=== PATIENT | female | born 1965 | race Caucasian/White ===

== ENCOUNTER 2017-08-31 09:46 | Emergency (ER) | payer OTHER ==
[2017-08-31 10:29] VITALS: BP 175/96
--- NOTE | 2017-08-31 11:01 | EDM.PDOC ---
ED HPI GENERAL MEDICAL PROBLEM - General Chief Complaint: Upper Extremity Injury/Pain Stated Complaint: LT ARM PAIN Time Seen by Provider: 08/31/17 10:15 Source of Information: Reports: Patient, Provider History Limitations: Reports: No Limitations - History of Present Illness INITIAL COMMENTS - FREE TEXT/NARRATIVE: 52-year-old female has had pain and numbness in her left arm for the past 2 weeks. It is along the biceps into the antecubital area, painful when she hangs her arm down or when she's flexing the arm. She's been waking up at night with some deep pain as well. It feels like the arm is starting to get weaker, she dropped a glass of pop yesterday which is unusual for her. She's had no swelling. She went into the clinic to be evaluated today, mentioned she had a couple episodes of chest pain as well over the past few weeks so she was sent to the emergency room. No shortness of breath, nausea or vomiting, no current chest discomfort. Onset: Unknown/Unsure (Symptoms have been waxing and waning for weeks) Severity: Mild Worsens with: Reports: Movement Left Upper Arm Pain Score (Numeric/FACES): 4 - Related Data Allergies Allergy/AdvReac Type Severity Reaction Status Date / Time Penicillins Allergy Intermediate swelling Verified 08/31/17 10:18 hands ultrasound gel Allergy Intermediate Rash Uncoded 08/31/17 10:18 Home Meds: Home Meds Albuterol [Ventolin HFA] 1 puff INH ASDIRECTED PRN 08/13/13 [History] Amitriptyline HCl 10 mg PO ASDIRECTED PRN 08/13/13 [History] Citalopram [Citalopram HBr] 20 mg PO DAILY 08/13/13 [History] Fluticasone/Salmeterol [Advair 250-50] 1 puff INH BEDTIME 08/13/13 [History] Omeprazole 20 mg PO ASDIRECTED PRN 08/31/17 [History] Past Medical History Cardiovascular History: Reports: Hypertension Respiratory History: Reports: Asthma Gastrointestinal History: Reports: GERD 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: Reports: Fibroids, Musculoskeletal History: Reports: Arthritis Neurological History: Reports: Migraines, Seizure Psychiatric History: Reports: Depression - Past Surgical History HEENT Surgical History: Reports: Adenoidectomy, Tonsillectomy Female Surgical History: Reports: Hysterectomy Social & Family History - Tobacco Use Smoking Status *Q: Never Smoker Years of Tobacco use: 2 Used Tobacco, but Quit: Yes Month Tobacco Last Used: 06/1990 Second Hand Smoke Exposure: No - Caffeine Use Caffeine Use: Reports: Soda, Tea - Alcohol Use Days Per Week of Alcohol Use: 0 - Recreational Drug Use Recreational Drug Use: No Review of Systems - Review of Systems Review Of Systems: See Below Respiratory: Denies: Shortness of Breath, Cough Cardiovascular: Reports: Chest Pain (A few episodes of chest pain over the past few weeks, brief) Genitourinary: Reports: No Symptoms Musculoskeletal: Reports: Arm Pain (Pain is localized to the left anterior arm) . Denies: Neck Pain, Shoulder Pain Neurological: Reports: Paresthesia (Intermittent paresthesias of the left arm that seemed to extend into the third and fourth finger left hand) Psychiatric: Reports: No Symptoms ED EXAM, GENERAL - Physical Exam Exam: See Below Exam Limited By: No Limitations General Appearance: Alert, No Apparent Distress Eye Exam: Bilateral Eye: Normal Inspection Neck: Normal Inspection, Supple, Non-Tender Respiratory/Chest: No Respiratory Distress, Lungs Clear Cardiovascular: Regular Rate, Rhythm Extremities: Other (Exam of the left arm reveals tenderness to palpation to the biceps, and particularly the distal biceps tendon. There is increased pain with flexion against resistance, some discomfort with extension but much less pain. Grasp strength is normal.) EKG INTERPRETATION Rhythm: NSR Course - Vital Signs Last Recorded V/S: Last Vital Signs Temp 95.2 F L 08/31/17 10:16 Pulse 63 08/31/17 10:27 Resp 16 08/31/17 10:27 BP 175/96 H 08/31/17 10:27 Pulse Ox 96 08/31/17 10:27 - Re-Assessments/Exams Free Text/Narrative Re-Assessment/Exam: 08/31/17 10:58 An EKG was done for reassurance which showed no ST segment changes. She was in a normal sinus rhythm. This is a musculoskeletal or neurologic origin, noncardiac. After a long discussion of treatment options, we elected to put her on 60 mg of prednisone for 6 consecutive days which she will take with her first meal of the day. I'm going to limit her to 5 pounds or less lifting for one week and have her rechecked in a week's time. She can return sooner at any time if worsening or concerns. Departure - Departure Time of Disposition: 11:19 Disposition: Home, Self-Care 01 Condition: Good Clinical Impression: Bicipital tendinitis Qualifiers: Laterality: left Qualified Code(s): M75.22 - Bicipital tendinitis, left shoulder - Discharge Information Instructions: Tendinitis, [id number] Referrals: Hazel Devine MD [Primary Care Provider] - Forms: ED Department Discharge Care Plan Goals: Rest your left arm for the next week while taking 60 mg of prednisone daily as discussed. Recheck in 1 week's time if not improving satisfactorily. Return sooner if worsening despite treatment.
== END 2017-08-31 11:19 | disposition home or self-care (01) ==
LOC: JP.ED 09:46
DX: M75.22 Bicipital tendinitis, left shoulder (principal); I10 Essential (primary) hypertension; J45.909 Unspecified asthma, uncomplicated; F32.9 Major depressive disorder, single episode, unspecified; Z79.899 Other long term (current) drug therapy; Z88.0 Allergy status to penicillin; Z91.048 Other nonmedicinal substance allergy status
CPT/HCPCS: 99284-25

== ENCOUNTER 2018-04-18 07:52 | Day surgery (SDC) | payer OTHER ==
[~2018-04-18 07:52] MED LIST: Midazolam 1 MG/ML 2 ML SDV ONE; Propofol 200 MG/20 ML SDV ONE; fentaNYL 100 MCG/2 ML SDV ONE
[2018-04-18] MEDS ORDERED: Lactated Ringers 1,000 ML IV SCH (08:00)
[2018-04-18 10:30] VITALS: BP 138/94
--- NOTE | 2018-04-19 07:34 | OR ---
DATE OF PROCEDURE: 04/18/2018 PREOPERATIVE DIAGNOSIS: Colon cancer screening. POSTOPERATIVE DIAGNOSIS: Kraus-diverticulosis. PROCEDURE: Colonoscopy to the cecum. ANESTHESIA: IV anesthesia with monitored anesthesia care. INDICATION: This 52-year-old white female is referred for a colonoscopy for colon cancer screening. She has never had a colonoscopic exam. I counseled her for the procedure including risks and alternatives, and she gave her informed consent to proceed. DESCRIPTION OF PROCEDURE: The patient was placed in the left lateral decubitus position. IV anesthesia was administered by the Anesthesia Service. Time-out was held. A rectal exam was performed, which was unremarkable. The flexible video Olympus colonoscope was introduced through her anus, up her rectum, and out her colon, all the way to the cecum. En route, we saw multiple left-sided diverticula. There were also a few scattered transverse and right colon diverticula. There was no bleeding or inflammation associated with any of them. Once the cecum was reached, the scope was slowly withdrawn, examining the mucosa throughout. No additional mucosal abnormalities were noted. There were no neoplastic lesions seen. The scope was retroflexed in the rectum with the distal rectum appearing unremarkable. The scope was straightened and removed. She tolerated the procedure well. Morales Garcia MD /[id number]
== END 2018-04-18 10:41 | disposition home or self-care (01) ==
LOC: JP.SDS 07:52
PROVIDERS: ATTEND Surgery
DX: Z12.11 Encounter for screening for malignant neoplasm of colon (principal); K57.30 Diverticulosis of large intestine without perforation or abscess without bleeding; K21.9 Gastro-esophageal reflux disease without esophagitis; J45.909 Unspecified asthma, uncomplicated; G47.33 Obstructive sleep apnea (adult) (pediatric); Z99.89 Dependence on other enabling machines and devices; E78.00 Pure hypercholesterolemia, unspecified; Z80.0 Family history of malignant neoplasm of digestive organs; Z88.1 Allergy status to other antibiotic agents; Z88.8 Allergy status to other drugs, medicaments and biological substances; Z91.048 Other nonmedicinal substance allergy status
CPT/HCPCS: 45378; J2250; J2704; J3010; J7120

== ENCOUNTER 2023-02-26 07:07 | Day surgery (SDC) | payer OTHER ==
[2023-02-26] MEDS ORDERED: Midazolam 1 MG/ML 2 ML SDV ONE (08:14)
[2023-02-26] MEDS ORDERED: Propofol 200 MG/20 ML SDV ONE (08:14)
[2023-02-26] MEDS ORDERED: fentaNYL 100 MCG/2 ML SDV ONE (08:14)
[2023-02-26] MEDS ORDERED: Lactated Ringers 1,000 ML IV SCH (08:30)
[2023-02-26 10:56] VITALS: BP 123/67; PULSE 84
== END 2023-02-26 11:09 | disposition home or self-care (01) ==
LOC: JP.SDS 07:07
PROVIDERS: ATTEND Student in an Organized Health Care Education/Training Program
DX: K29.50 Unspecified chronic gastritis without bleeding (principal); K21.00 Gastro-esophageal reflux disease with esophagitis, without bleeding; K44.9 Diaphragmatic hernia without obstruction or gangrene; I10 Essential (primary) hypertension; E78.5 Hyperlipidemia, unspecified; E66.9 Obesity, unspecified; Z88.0 Allergy status to penicillin; Z88.1 Allergy status to other antibiotic agents; Z88.8 Allergy status to other drugs, medicaments and biological substances
CPT/HCPCS: 88305; J2250; J2704; J3010; J7120

== ENCOUNTER 2023-09-08 11:00 | Emergency (ER) | payer OTHER, MEDICAID ==
[2023-09-08 11:31] LABS: BASOPHILS ABSOLUTE AUTO 0.04 K/uL (0.00-0.10); BASOPHILS PERCENT AUTO 0.3 % (0.1-1.3); EOSINOPHILS ABSOLUTE AUTO 0.13 K/uL (0.00-0.40); EOSINOPHILS PERCENT AUTO 1.1 % (0.0-5.4); HEMATOCRIT 33.8 % (34.3-46.0); IMMATURE GRAN ABSOLUTE AUTO 0.09 K/uL (0.00-0.23); IMMATURE GRAN PERCENT AUTO 0.8 % (0.0-0.7); LYMPHOCYTES ABSOLUTE AUTO 0.78 K/uL (0.8-3.3); LYMPHOCYTES PERCENT AUTO 6.8 % (11.4-47.7); MEAN CORPUSCULAR HEMOGLOBIN 30.5 pg (31.6-35.5); MEAN CORPUSCULAR HGB CONC 35.5 g/dL (31.6-35.5); MONOCYTES ABSOLUTE AUTO 0.94 K/uL (0.20-0.90); MONOCYTES PERCENT AUTO 8.2 % (3.3-12.6); NEUTROPHILS ABSOLUTE AUTO 9.49 K/uL (1.0-7.6); NEUTROPHILS PERCENT AUTO 82.8 % (40.0-78.1); PLATELET COUNT,PLT 371 K/uL (130-375); RED BLOOD CELL COUNT 3.93 M/uL (3.77-5.24); WHITE BLOOD CELL COUNT,WBC 11.5 K/uL (3.2-11.0)
[2023-09-08 11:47] LABS: ANION GAP 17.2 mmol/L (5.0-14.0); CALCIUM 9.1 mg/dL (8.5-10.1); EST CRCL DRUG DOSING (CG) 43.51 mL/min; MAGNESIUM 1.2 mg/dL (1.8-2.4); POTASSIUM,K 3.2 mmol/L (3.6-5.2)
[2023-09-08] MEDS ORDERED: Magnesium Sulfate/Water 2 GM in Premix Bag 1 BAG IV ONE (11:52)
[2023-09-08] MEDS ORDERED: Lactated Ringers 1,000 ML IV ONE (11:56)
[2023-09-08 12:34] LABS: BASE EXCESS VENOUS 4.1 mm/L; BICARBONATE,VENOUS 24.6 mmol/L; METHEMOGLOBIN 1.5 %; O2 SATURATION VENOUS 64.1; OXYHEMOGLOBIN 61.9 %; PCO2 VENOUS 24.3 mm/Hg; PH,VENOUS 7.609 (7.350-7.450); PO2 VENOUS 30.4 mm/Hg; TOTAL HEMOGLOBIN 12.1 g/dL (12.0-16.0)
[2023-09-08] MEDS ORDERED: LORazepam 2 MG/ML SDV IVPUSH ONE (12:45)
[2023-09-08] MEDS ORDERED: Benzonatate 100 MG Cap PO ONE (13:14)
[2023-09-08 13:17] VITALS: BP 129/66; PULSE 88
[2023-09-08] MEDS ORDERED: Albuterol/Ipratropium 3.0-0.5 MG/3 ML Neb Soln NEB ONE (14:02)
[2023-09-08 14:31] LABS: CALCIUM 8.9 mg/dL (8.5-10.1); CREATININE 0.9 mg/dL (0.6-1.0); EST CRCL DRUG DOSING (CG) 48.34 mL/min; MAGNESIUM 2.3 mg/dL (1.8-2.4); POTASSIUM,K 3.1 mmol/L (3.6-5.2)
[2023-09-08 14:32] LABS: ANION GAP 12.1 mmol/L (5.0-14.0)
== END 2023-09-08 15:20 | disposition home or self-care (01) ==
LOC: JP.ED 11:00
DX: E87.6 Hypokalemia (principal); E83.42 Hypomagnesemia; F41.9 Anxiety disorder, unspecified; I10 Essential (primary) hypertension; K21.9 Gastro-esophageal reflux disease without esophagitis; J45.909 Unspecified asthma, uncomplicated; E66.9 Obesity, unspecified; Z79.899 Other long term (current) drug therapy; Z88.0 Allergy status to penicillin; Z88.1 Allergy status to other antibiotic agents; Z88.8 Allergy status to other drugs, medicaments and biological substances; Z91.048 Other nonmedicinal substance allergy status
CPT/HCPCS: 36415; 71046; 71046-26; 80048; 82803; 83605; 83735; 84145; 85025; 93005; 93010; 96365; 96366; 96375; 99283; 99285-25; A9270-GY; J2060; J3475; J7120; J7620

== ENCOUNTER 2023-09-13 11:47 | Inpatient (IN) | payer OTHER, MEDICAID ==
[2023-09-13] MEDS ORDERED: Sodium Chloride 0.9% 10 ML Syringe FLUSH PRN (12:52)
[2023-09-13] MEDS ORDERED: Sodium Chloride 0.9% 500 ML IV ONE ×2 (12:52→13:51)
[2023-09-13] MEDS ORDERED: Acetaminophen 500 MG Tab PO ONE (12:52)
[2023-09-13] MEDS ORDERED: Ondansetron 4 MG/2 ML SDV IVPUSH ONE (12:52)
[2023-09-13 13:04] LABS: BASE EXCESS VENOUS -1.6 mm/L; CARBOXYHEMOGLOBIN 1.7 % (0.0-1.6); METHEMOGLOBIN 1.3 %; O2 SATURATION VENOUS 46.2; OXYHEMOGLOBIN 44.8 %; PCO2 VENOUS 40.5 mm/Hg; PH,VENOUS 7.372 (7.350-7.450); TOTAL HEMOGLOBIN 13.8 g/dL (12.0-16.0)
[2023-09-13 13:08] LABS: PO2 VENOUS 28.3 mm/Hg
[2023-09-13 13:19] LABS: HEMOGLOBIN 12.6 g/dL (11.2-15.5); MEAN CORPUSCULAR HEMOGLOBIN 30.1 pg (31.6-35.5); MEAN CORPUSCULAR VOLUME 86.1 fL (81.4-99.0); PLATELET COUNT,PLT 265 K/uL (130-375); RED BLOOD CELL COUNT 4.18 M/uL (3.77-5.24); WHITE BLOOD CELL COUNT,WBC 8.1 K/uL (3.2-11.0)
[2023-09-13 13:22] LABS: CHLORIDE,CL 96 mmol/L (100-108)
[2023-09-13 13:37] LABS: BAND ABSOLUTE MAN 0.41 K/uL; BAND PERCENT MAN 5 % (5-11); LYMPHOCYTES ABSOLUTE MAN 1.86 K/uL (0.8-3.3); LYMPHOCYTES PERCENT MAN 23 % (24-44); MONOCYTES ABSOLUTE MAN 0.16 K/uL (0.20-0.90); MONOCYTES PERCENT MAN 2 % (2-6); NEUTROPHILS ABSOLUTE MAN 5.67 K/uL (1.0-7.6); SEG NEUTROPHILS PERCENT MAN 70 % (36-66)
[2023-09-13 13:42] LABS: A/G RATIO 0.8 (1.2-2.2); ALANINE AMINOTRANSFERASE,ALT 41 U/L (12-78); ALBUMIN 3.2 g/dL (3.4-5.0); ALKALINE PHOSPHATASE 70 U/L (46-116); ANION GAP 14.1 mmol/L (5.0-14.0); ASPARTATE AMNIOTRANSFERASE,AST 82 U/L (15-37); BILIRUBIN TOTAL 0.3 mg/dL (0.2-1.0); BLOOD UREA NITROGEN,BUN 35 mg/dL (7-18); C-REACTIVE PROTEIN 6.86 mg/dL (0.0-0.3); CALCIUM 8.2 mg/dL (8.5-10.1); CARBON DIOXIDE,CO2 27 mmol/L (21-32); CREATININE 1.5 mg/dL (0.6-1.0); ESTIMATED GFR 40 mL/min (>60); GLUCOSE RANDOM 118 mg/dL (74-106); POTASSIUM,K 3.1 mmol/L (3.6-5.2); SODIUM,NA 134 mmol/L (140-148)
[2023-09-13] MEDS ORDERED: Potassium Chloride 20 MEQ Tab.ER PO ONE (13:50)
[2023-09-13] MEDS ORDERED: Sodium Chloride 0.9% 1,000 ML IV ONE (14:13)
[2023-09-13] MEDS ORDERED: Sodium Chloride 0.9% 10 ML Syringe FLUSH ONE (14:25)
[2023-09-13] MEDS ORDERED: Iopamidol 755 Mg/ML 100 ML Bottle IV SCH (14:30)
[2023-09-13] MEDS ORDERED: Sodium Chloride 0.9% 100 ML IV SCH (14:30)
[2023-09-13 14:35] LABS: LYME AB IgM Negative (Negative)
[2023-09-13 14:41] LABS: LYME AB IgG Negative (Negative)
[2023-09-13] MEDS ORDERED: Levofloxacin 250 MG Tab PO ONE (15:33)
[2023-09-13] MEDS ORDERED: Prochlorperazine 10 MG/2 ML SDV IVPUSH ONE (18:21)
[2023-09-13] MEDS ORDERED: Naloxone 0.4 MG/ML SDV IVPUSH PRN (19:57)
[2023-09-13] MEDS ORDERED: Potassium Chloride 20 MEQ in Premix Bag 1 BAG IV ONE (19:57)
[2023-09-13] MEDS ORDERED: Acetaminophen 325 MG Tab PO PRN (19:57)
[2023-09-13] MEDS ORDERED: Ondansetron 4 MG/2 ML SDV IV PRN (19:57)
[2023-09-13] MEDS ORDERED: Morphine 2 MG/ML SYRINGE IVPUSH PRN (19:57)
[2023-09-13] MEDS ORDERED: Bisacodyl 5 MG Tab PO PRN (19:57)
[2023-09-13] MEDS ORDERED: Ketorolac 30 MG/ML SDV IVPUSH PRN (19:57)
[2023-09-13] MEDS ORDERED: Sodium Chloride 0.9% 1,000 ML IV SCH (19:57)
[2023-09-13] MEDS ORDERED: Albuterol 0.083% 2.5 MG/3 ML Neb Soln NEB PRN (19:57)
[2023-09-13] MEDS ORDERED: methylPREDNISolone Sodium Succinate 125 MG/2 ML SDV IVPUSH ONE (19:57)
[2023-09-13] MEDS ORDERED: oxyCODONE 5 MG Tab PO PRN (19:57)
[2023-09-13] MEDS ORDERED: Docusate Sodium 100 MG Cap PO PRN (19:57)
[2023-09-13] MEDS ORDERED: LORazepam 2 MG/ML SDV IV PRN (19:57)
[2023-09-13] MEDS ORDERED: Ondansetron 4 MG Tab.DIS PO PRN (19:57)
[2023-09-13] MEDS ORDERED: Azithromycin 500 MG in Sodium Chloride 0.9% 250 ML IV SCH (20:00)
[2023-09-13] MEDS ORDERED: Enoxaparin 30 MG/0.3 ML Syringe SUBCUT SCH (20:35)
[2023-09-13] MEDS ORDERED: Formoterol/Mometasone 100-5 MCG 8.8 GM Inhaler IH SCH (21:00)
[2023-09-13] MEDS ORDERED: Pantoprazole 40 MG Vial IV SCH (21:00)
[2023-09-13] MEDS ORDERED: cefTRIAXone 2 GM in Sodium Chloride 0.9% 50 ML IV SCH (21:00)
[2023-09-13] MEDS: Melatonin 3 MG Tab PO SCH (21:35)
[2023-09-13] MEDS: Albuterol/Ipratropium 3.0-0.5 MG/3 ML Neb Soln NEB SCH (21:36)
[2023-09-13] MEDS: DULoxetine 30 MG Cap PO SCH (21:50)
[2023-09-14] MEDS ORDERED: methylPREDNISolone Sodium Succinate 40 MG/1 ML SDV IVPUSH SCH ×2 (01:00→09:00)
[2023-09-14 06:11] LABS: HEMOGLOBIN 11.6 g/dL (11.2-15.5); MEAN CORPUSCULAR HEMOGLOBIN 30.1 pg (31.6-35.5); MEAN CORPUSCULAR HGB CONC 34.1 g/dL (31.6-35.5); MEAN CORPUSCULAR VOLUME 88.1 fL (81.4-99.0); PLATELET COUNT,PLT 265 K/uL (130-375); RED BLOOD CELL COUNT 3.86 M/uL (3.77-5.24); WHITE BLOOD CELL COUNT,WBC 3.5 K/uL (3.2-11.0)
[2023-09-14 06:23] LABS: C-REACTIVE PROTEIN 4.75 mg/dL (0.0-0.3); CALCIUM 7.7 mg/dL (8.5-10.1); CREATININE 1.1 mg/dL (0.6-1.0); EST CRCL DRUG DOSING (CG) 41.55 mL/min; POTASSIUM,K 3.1 mmol/L (3.6-5.2)
[2023-09-14 06:25] LABS: ANION GAP 19.1 mmol/L (5.0-14.0)
[2023-09-14 06:53] LABS: LYMPHOCYTES ABSOLUTE MAN 0.84 K/uL (0.8-3.3); LYMPHOCYTES PERCENT MAN 24 % (24-44); MONOCYTES ABSOLUTE MAN 0.14 K/uL (0.20-0.90); MONOCYTES PERCENT MAN 4 % (2-6); NEUTROPHILS ABSOLUTE MAN 2.52 K/uL (1.0-7.6); SEG NEUTROPHILS PERCENT MAN 72 % (36-66)
[2023-09-14] MEDS: Albuterol/Ipratropium 3.0-0.5 MG/3 ML Neb Soln NEB SCH ×4 (07:28→20:22)
[2023-09-14] MEDS: Formoterol/Mometasone 100-5 MCG 8.8 GM Inhaler IH SCH ×2 (07:29→20:24)
[2023-09-14] MEDS ORDERED: Potassium Chloride 20 MEQ Tab.ER PO ONE ×3 (09:00→21:30)
[2023-09-14] MEDS ORDERED: predniSONE 20 MG Tab PO ONE (09:30)
[2023-09-14] MEDS: Chlorthalidone 25 MG Tab PO SCH (09:37)
[2023-09-14] MEDS: DULoxetine 30 MG Cap PO SCH ×2 (09:38→20:22)
[2023-09-14] MEDS: Lisinopril 5 MG Tab PO SCH (09:38)
[2023-09-14] MEDS: Levofloxacin 250 MG Tab PO SCH (15:29)
[2023-09-14] MEDS ORDERED: Azithromycin 250 MG Tab PO SCH (20:00)
[2023-09-14] MEDS: Melatonin 3 MG Tab PO SCH (20:22)
[2023-09-14] MEDS: Pantoprazole 40 MG Tab.CR PO SCH (20:22)
[2023-09-14] MEDS: Enoxaparin 40 MG/0.4 ML Syringe SUBCUT SCH (20:22)
[2023-09-14] MEDS ORDERED: Cyclobenzaprine 10 MG Tab PO PRN (20:48)
[2023-09-14] MEDS ORDERED: cefTRIAXone 2 GM in Sodium Chloride 0.9% 50 ML IV SCH (21:00)
[2023-09-14] MEDS ORDERED: Potassium Chloride 10 MEQ in Premix Bag 4 BAG IV ONE (21:14)
[2023-09-14] MEDS: Potassium Chloride 100 ML IV SCH ×3 (21:44→23:59)
[2023-09-15] MEDS: Potassium Chloride 100 ML IV SCH (00:59)
[2023-09-15 05:16] LABS: HEMATOCRIT 30.9 % (34.3-46.0); HEMOGLOBIN 10.9 g/dL (11.2-15.5); MEAN CORPUSCULAR HEMOGLOBIN 30.5 pg (31.6-35.5); MEAN CORPUSCULAR HGB CONC 35.3 g/dL (31.6-35.5); MEAN CORPUSCULAR VOLUME 86.6 fL (81.4-99.0); RED BLOOD CELL COUNT 3.57 M/uL (3.77-5.24); WHITE BLOOD CELL COUNT,WBC 7.8 K/uL (3.2-11.0)
[2023-09-15 05:47] LABS: CALCIUM 8.6 mg/dL (8.5-10.1); CREATININE 0.8 mg/dL (0.6-1.0); EST CRCL DRUG DOSING (CG) 57.14 mL/min; POTASSIUM,K 3.8 mmol/L (3.6-5.2)
[2023-09-15 05:54] LABS: ANION GAP 12.8 mmol/L (5.0-14.0)
[2023-09-15] MEDS: Albuterol/Ipratropium 3.0-0.5 MG/3 ML Neb Soln NEB SCH (07:43)
[2023-09-15] MEDS: Formoterol/Mometasone 100-5 MCG 8.8 GM Inhaler IH SCH ×2 (07:43→20:54)
[2023-09-15] MEDS ORDERED: predniSONE 20 MG Tab PO SCH (08:00)
[2023-09-15] MEDS: Benzonatate 100 MG Cap PO PRN ×2 (08:12→19:15)
[2023-09-15] MEDS: Lisinopril 5 MG Tab PO SCH (09:34)
[2023-09-15] MEDS: Chlorthalidone 25 MG Tab PO SCH (09:34)
[2023-09-15] MEDS: DULoxetine 30 MG Cap PO SCH ×2 (09:34→20:54)
[2023-09-15] MEDS: Levofloxacin 250 MG Tab PO SCH (15:07)
[2023-09-15] MEDS: Pantoprazole 40 MG Tab.CR PO SCH (20:54)
[2023-09-15] MEDS: Melatonin 3 MG Tab PO SCH (20:54)
[2023-09-15] MEDS: Enoxaparin 40 MG/0.4 ML Syringe SUBCUT SCH (20:54)
[2023-09-16] MEDS: Benzonatate 100 MG Cap PO PRN ×3 (04:24→21:13)
[2023-09-16 05:40] LABS: HEMATOCRIT 32.6 % (34.3-46.0); HEMOGLOBIN 11.4 g/dL (11.2-15.5); MEAN CORPUSCULAR HEMOGLOBIN 30.2 pg (31.6-35.5); MEAN CORPUSCULAR VOLUME 86.5 fL (81.4-99.0); RED BLOOD CELL COUNT 3.77 M/uL (3.77-5.24); WHITE BLOOD CELL COUNT,WBC 8.5 K/uL (3.2-11.0)
[2023-09-16 05:57] LABS: CALCIUM 8.9 mg/dL (8.5-10.1); CREATININE 0.8 mg/dL (0.6-1.0); EST CRCL DRUG DOSING (CG) 57.14 mL/min
[2023-09-16 06:02] LABS: ANION GAP 12.8 mmol/L (5.0-14.0); POTASSIUM,K 2.8 mmol/L (3.6-5.2)
[2023-09-16] MEDS ORDERED: Potassium Chloride 20 MEQ Tab.ER PO ONE ×3 (06:25→18:08)
[2023-09-16] MEDS: Potassium Chloride 10 MEQ in Premix Bag 1 BAG IV SCH ×2 (06:46→08:11)
[2023-09-16] MEDS: Formoterol/Mometasone 100-5 MCG 8.8 GM Inhaler IH SCH ×2 (07:08→21:14)
[2023-09-16] MEDS: DULoxetine 30 MG Cap PO SCH ×2 (09:09→21:13)
[2023-09-16] MEDS: Chlorthalidone 25 MG Tab PO SCH (09:10)
[2023-09-16] MEDS: Lisinopril 5 MG Tab PO SCH (09:10)
[2023-09-16] MEDS: Codeine/guaiFENesin 10-100 MG/5 ML Syrup 5 ML Cup PO PRN ×3 (12:33→21:13)
[2023-09-16] MEDS: Levofloxacin 250 MG Tab PO SCH (15:13)
[2023-09-16] MEDS: Enoxaparin 40 MG/0.4 ML Syringe SUBCUT SCH (21:14)
[2023-09-16] MEDS: Melatonin 3 MG Tab PO SCH (21:14)
[2023-09-16] MEDS: Pantoprazole 40 MG Tab.CR PO SCH (21:15)
[2023-09-17] MEDS: Benzocaine/Cetylpyridinium/Menthol Lozenge MUCMEM PRN ×2 (00:08→05:55)
[2023-09-17 05:20] LABS: CALCIUM 8.9 mg/dL (8.5-10.1); CREATININE 0.8 mg/dL (0.6-1.0); EST CRCL DRUG DOSING (CG) 57.14 mL/min; POTASSIUM,K 3.5 mmol/L (3.6-5.2)
[2023-09-17 05:23] LABS: ANION GAP 10.5 mmol/L (5.0-14.0)
[2023-09-17] MEDS: Codeine/guaiFENesin 10-100 MG/5 ML Syrup 5 ML Cup PO PRN ×2 (05:54→12:15)
[2023-09-17] MEDS: Benzonatate 100 MG Cap PO PRN ×2 (05:55→12:16)
[2023-09-17] MEDS: Formoterol/Mometasone 100-5 MCG 8.8 GM Inhaler IH SCH (07:20)
[2023-09-17] MEDS: Chlorthalidone 25 MG Tab PO SCH (08:41)
[2023-09-17] MEDS: DULoxetine 30 MG Cap PO SCH (08:42)
[2023-09-17] MEDS: Lisinopril 5 MG Tab PO SCH (08:58)
[2023-09-17] MEDS ORDERED: Potassium Chloride 20 MEQ Tab.ER PO ONE (09:00)
[2023-09-17 12:14] VITALS: BP 95/61; PULSE 88
[2023-09-17] MEDS: Levofloxacin 250 MG Tab PO SCH (14:14)
== END 2023-09-17 14:48 | disposition home or self-care (01) | DRG 193 ==
LOC: JP.ED 11:47 → JP.MS 19:03
PROVIDERS: ADMIT Internal Medicine; ATTEND Internal Medicine
PROC: 4A043R1 Measurement of Venous Saturation, Peripheral, Percutaneous Approach (ICD-10-PCS; principal; 2023-09-13)
DX: J18.9 Pneumonia, unspecified organism (principal); J96.01 Acute respiratory failure with hypoxia; N17.9 Acute kidney failure, unspecified; J44.0 Chronic obstructive pulmonary disease with (acute) lower respiratory infection; E87.6 Hypokalemia; E83.42 Hypomagnesemia; I10 Essential (primary) hypertension; G47.30 Sleep apnea, unspecified; K21.9 Gastro-esophageal reflux disease without esophagitis; M19.90 Unspecified osteoarthritis, unspecified site; G89.29 Other chronic pain; M54.9 Dorsalgia, unspecified; G43.909 Migraine, unspecified, not intractable, without status migrainosus; E86.0 Dehydration; F41.9 Anxiety disorder, unspecified; F32.A Depression, unspecified; E66.9 Obesity, unspecified; Z90.89 Acquired absence of other organs; Z11.52 Encounter for screening for COVID-19; Z88.0 Allergy status to penicillin; Z88.8 Allergy status to other drugs, medicaments and biological substances; Z79.899 Other long term (current) drug therapy; Z90.710 Acquired absence of both cervix and uterus; Z98.890 Other specified postprocedural states; Z68.34 Body mass index [BMI] 34.0-34.9, adult
CPT/HCPCS: 36415; 71275; 71275-26; 80048; 80053; 82803; 83605; 83735; 84132; 84145; 85025; 85027; 85379; 86140; 86618; 87040; 93005; 93010; 94640; 96361; 96374; 96375; 99285; 99285-25; A9270-GY; C9113; J0456; J0696; J0780; J1650; J2405; J2920; J2930; J3480; J3490; J7030; J7040; J7050; J7512; J7620; Q0162; Q9967; U0002

== ENCOUNTER 2025-03-26 15:52 | Emergency (ER) | payer MEDICAID, OTHER ==
[2025-03-26 16:07] VITALS: BP 125/84; PULSE 99
== END 2025-03-26 17:59 | disposition home or self-care (01) ==
LOC: JP.ED 15:52
DX: J06.9 Acute upper respiratory infection, unspecified (principal); B97.89 Other viral agents as the cause of diseases classified elsewhere; I10 Essential (primary) hypertension; E66.9 Obesity, unspecified; Z88.0 Allergy status to penicillin; Z88.1 Allergy status to other antibiotic agents; Z88.8 Allergy status to other drugs, medicaments and biological substances; Z91.09 Other allergy status, other than to drugs and biological substances; Z79.899 Other long term (current) drug therapy; Z90.710 Acquired absence of both cervix and uterus; Z87.891 Personal history of nicotine dependence
CPT/HCPCS: 87426-QW; 87651; 99283